=== PATIENT | female | born 1985 | race Hispanic/Latino ===

== ENCOUNTER 2020-03-11 10:08 | Emergency (ER) | payer SELFPAY ==
[2020-03-11] MEDS ORDERED: KETOROLAC 30 MG/1 ML INJ IV ONE (10:42)
--- NOTE | 2020-03-11 10:48 | Emergency Department Report ---
ED Female HPI - General Chief complaint: Vaginal Bleeding Stated complaint: VAGINAL BLEEDING Time Seen by Provider: 03/11/20 10:31 Source: EMS, old records reviewed (None available) Mode of arrival: Stretcher Limitations: No Limitations - History of Present Illness Initial comments: 34-year-old female with a past medical history of endometriosis, irregular menses, menorrhagia, anemia without previous blood transfusion, and ovarian masses suspicious for cancer on previous ED ultrasound sefveryears ago presents to the hospital complaining of heavy vaginal bleeding for the last 10 days. Patient states she is bleeding heavily and passing clots. She is unable to quantify the bleeding and gets frustrated with questioning stating I am asking too many questions. She states that she is feeling lightheaded and dizzy. Patient also has a history of anemia but noncompliant with iron pills. Patient initially told triage nurse that she had ovarian cancer but apparently she had a pelvic ultrasound several years ago performed in the ED and has never followed up with a GI in doctor due to lack of insurance. She also reports she has history of seizure disorder with last seizure several months ago and is noncompliant with meds. This is her first visit here she has been seen at [facility] in the past. Patient complains of abdominal soreness but not severe pain. Patient states her menstrual cycles are chronically irregular and heavy and sometimes occur twice in 1 month. - Related Data Previous Rx's Medication Instructions Recorded Last Taken Type Docusate Sodium [Colace] 100 mg PO BID PRN #20 capsule 03/11/20 Unknown Rx Ferrous Sulfate [Ferrous Sulfate 324 mg PO DAILY #20 tablet. 03/11/20 Unknown Rx 324 MG] Ibuprofen [Motrin] 800 mg PO Q8HR PRN #20 tablet 03/11/20 Unknown Rx medroxyPROGESTERone ACETATE 10 mg PO QDAY #10 tablet 03/11/20 Unknown Rx [Provera] Allergies Allergy/AdvReac Type Severity Reaction Status Date / Time cyclobenzaprine Allergy Unknown Verified 03/11/20 10:33 [From Flexeril] ED Review of Systems ROS: Stated complaint: VAGINAL BLEEDING Other details as noted in HPI Comment: All other systems reviewed and negative ED Past Medical Hx - Past Medical History Hx Seizures: Yes Additional medical history: Endometriosis, ovarian masses "suspicious for c ancer" on ultrasound several years ago no follow-up - Social History Smoking Status: Unknown if ever smoked - Medications Home Medications: Home Medications Medication Instructions Recorded Confirmed Last Taken Type Docusate Sodium [Colace] 100 mg PO BID PRN #20 capsule 03/11/20 Unknown Rx Ferrous Sulfate [Ferrous Sulfate 324 mg PO DAILY #20 tablet. 03/11/20 Unknown Rx 324 MG] Ibuprofen [Motrin] 800 mg PO Q8HR PRN #20 tablet 03/11/20 Unknown Rx medroxyPROGESTERone ACETATE 10 mg PO QDAY #10 tablet 03/11/20 Unknown Rx [Provera] ED Physical Exam - General Limitations: No Limitations - Other Other exam information: General: No acute distress Head: Atraumatic Eyes: normal appearance ENT: Moist mucous membranes Neck: Normal appearance, no midline tenderness Chest: Clear to auscultation bilaterally CV: Regular rate and rhythm Abdomen: Soft, normal bowel sounds, nontender, nondistended, no rebound or guarding Back: Normal inspection Extremity: Normal inspection, full range of motion Neuro: Alert O x 3, no facial asymmetry, speech clear, no gross motor sensory deficit Psych: Appropriate behavior Skin: No rash ED Course Vital Signs 03/11/20 03/11/20 10:30 10:40 Temperature 97.1 F L 98.2 F Pulse Rate 81 80 Respiratory 20 20 Rate Blood Pressure 144/90 Blood Pressure 118/67 [Right] O2 Sat by Pulse 100 100 Oximetry ED Medical Decision Making - Lab Data Result diagrams: 03/11/20 10:51 03/11/20 10:51 Lab Results 03/11/20 03/11/20 03/11/20 Range/Units 10:51 10:51 10:51 WBC 5.0 (4.5-11.0) K/mm3 RBC 3.57 L (3.65-5.03) M/mm3 Hgb 12.1 (10.1-14.3) gm/dl Hct 36.1 (30.3-42.9) % MCV 101 H (79-97) fl MCH 34 H (28-32) pg MCHC 33 (30-34) % RDW 16.9 H (13.2-15.2) % Plt Count 166 (140-440) K/mm3 Lymph % (Auto) 23.8 (13.4-35.0) % Armstrong % (Auto) 12.3 H (0.0-7.3) % Eos % (Auto) 0.2 (0.0-4.3) % Baso % (Auto) 0.5 (0.0-1.8) % Lymph # (Auto) 1.2 (1.2-5.4) K/mm3 Armstrong # (Auto) 0.6 (0.0-0.8) K/mm3 Eos # (Auto) 0.0 (0.0-0.4) K/mm3 Baso # (Auto) 0.0 (0.0-0.1) K/mm3 Seg Neutrophils % 63.2 (40.0-70.0) % Seg Neutrophils # 3.2 (1.8-7.7) K/mm3 PT 13.4 (12.2-14.9) Sec. INR 1.01 (0.87-1.13) APTT 27.8 (24.2-36.6) Sec. Sodium 143 (137-145) mmol/L Potassium 4.1 (3.6-5.0) mmol/L Chloride 106.5 (98-107) mmol/L Carbon Dioxide 25 (22-30) mmol/L Anion Gap 16 mmol/L BUN 3 L (7-17) mg/dL Creatinine 0.4 L (0.6-1.2) mg/dL Estimated GFR > 60 ml/min BUN/Creatinine Ratio 8 % Glucose 85 (65-100) mg/dL Calcium 8.7 (8.4-10.2) mg/dL HCG, Qual (Negative) Blood Type Antibody Screen 03/11/20 03/11/20 Range/Units 10:51 10:57 WBC (4.5-11.0) K/mm3 RBC (3.65-5.03) M/mm3 Hgb (10.1-14.3) gm/dl Hct (30.3-42.9) % MCV (79-97) fl MCH (28-32) pg MCHC (30-34) % RDW (13.2-15.2) % Plt Count (140-440) K/mm3 Lymph % (Auto) (13.4-35.0) % Armstrong % (Auto) (0.0-7.3) % Eos % (Auto) (0.0-4.3) % Baso % (Auto) (0.0-1.8) % Lymph # (Auto) (1.2-5.4) K/mm3 Armstrong # (Auto) (0.0-0.8) K/mm3 Eos # (Auto) (0.0-0.4) K/mm3 Baso # (Auto) (0.0-0.1) K/mm3 Seg Neutrophils % (40.0-70.0) % Seg Neutrophils # (1.8-7.7) K/mm3 PT (12.2-14.9) Sec. INR (0.87-1.13) APTT (24.2-36.6) Sec. Sodium (137-145) mmol/L Potassium (3.6-5.0) mmol/L Chloride (98-107) mmol/L Carbon Dioxide (22-30) mmol/L Anion Gap mmol/L BUN (7-17) mg/dL Creatinine (0.6-1.2) mg/dL Estimated GFR ml/min BUN/Creatinine Ratio % Glucose (65-100) mg/dL Calcium (8.4-10.2) mg/dL HCG, Qual Negative (Negative) Blood Type A POSITIVE Antibody Screen Negative - Radiology Data Radiology results: report reviewed ULTRASOUND PELVIS INDICATION: Heavy vaginal bleeding. TECHNIQUE: Transabdominal and Transvaginal. Duplex Color Doppler used: Yes. COMPARISON: None available FINDINGS: Uterus: Present. Size: 11.8 x 4.4 x 6.3 cm. Endometrial complex: Heterogeneous with indistinct margins, measuring 1.1 cm. Mass lesions: None. Additional findings: None. Right Ovary: Size: 3.4 x 1.5 x 3.5 cm Blood flow: Normal. Cyst or mass: None. Left Ovary: Size: 3.4 x 1.5 x 3.1 cm Blood flow: Normal. Cyst or mass: None. Urinary Bladder: Normal. Free Fluid: None. Additional Findings: None. IMPRESSION: 1. Nonspecific heterogeneity along the endometrial complex. No other significant sonographic abnormality of the pelvis. - Medical Decision Making 34-year-old female with a past medical history of chronically irregular and heav y menstrual cycles and with reported endometriosis presents to the hospital with complaints of heavy vaginal bleeding x10 days and lightheadedness. Vital signs unremarkable and patient does not have hypotension or tachycardia. Labs also unremarkable without any signs of anemia, leukocytosis, thrombocytopenia, or electrolyte/kidney abnormality. hCG is negative for . Patient had a transvaginal/transabdominal ultrasound with Doppler without any abnormality with exception of nonspecific heterogenicity along the endometrial complex. At this time patient is stable and does not require blood transfusion or admission. She received a dose of Toradol IV in the ED she will be placed on Provera, Motrin, and advised to follow-up with a outpatient [employer]ES HELPER for management of her chronic menometrorrhagia and advised to be compliant with iron pills as tolerated. Critical Care Time: No Critical care attestation.: If time is entered above; I have spent that time in minutes in the direct care of this critically ill patient, excluding procedure time. ED Disposition Clinical Impression: Menometrorrhagia Disposition: TO HOME OR SELFCARE Is pt being admited?: No Does the pt Need Aspirin: No Condition: Stable Instructions: Metrorrhagia, Menorrhagia Additional Instructions: Take the medication as prescribed. Follow-up with your doctor or doctor/clinic provided. Return if symptoms worsen as indicated by your discharge instructions. Prescriptions: Docusate Sodium [Colace] 100 mg PO BID PRN #20 capsule PRN Reason: Constipation Ferrous Sulfate [Ferrous Sulfate 324 MG] 324 mg PO DAILY #20 tablet. Ibuprofen [Motrin] 800 mg PO Q8HR PRN #20 tablet PRN Reason: Pain , Severe (7-10) medroxyPROGESTERone ACETATE [Provera] 10 mg PO QDAY #10 tablet Referrals: APARNA ALBA MD [Staff Physician] - 3-5 Days [facility] [Provider Group] - 3-5 Days (call and request appo intment for the [facility] senior safety support manager doctor) Time of Disposition: 12:53
[2020-03-11 11:17] LABS: Basophils % (Auto) 0.5 % (0.0-1.8); Eosinophils % (Auto) 0.2 % (0.0-4.3); Hematocrit 36.1 % (30.3-42.9); Hemoglobin 12.1 gm/dl (10.1-14.3); Lymphocytes # (Auto) 1.2 K/mm3 (1.2-5.4); Lymphocytes % (Auto) 23.8 % (13.4-35.0); Mean Corpuscular HGB Conc 33 % (30-34); Mean Corpuscular Volume 101 fl (79-97); Monocytes # (Auto) 0.6 K/mm3 (0.0-0.8); Monocytes % (Auto) 12.3 % (0.0-7.3); Platelet Count 166 K/mm3 (140-440); Red Blood Count 3.57 M/mm3 (3.65-5.03); Red Cell Distribution Width 16.9 % (13.2-15.2)
[2020-03-11 11:30] LABS: INR 1.01 (0.87-1.13)
[2020-03-11 11:31] LABS: Partial Thromboplastin Time 27.8 Sec. (24.2-36.6)
[2020-03-11 11:41] LABS: Blood Urea Nitrogen 3 mg/dL (7-17); Calcium 8.7 mg/dL (8.4-10.2); Hemolysis Index 4
[2020-03-11 12:07] LABS: BUN/Creatinine Ratio 8
--- NOTE | 2020-03-11 12:39 | Ultrasound Report ---
ULTRASOUND PELVIS INDICATION: Heavy vaginal bleeding. TECHNIQUE: Transabdominal and Transvaginal. Duplex Color Doppler used: Yes. COMPARISON: None available FINDINGS: Uterus: Present. Size: 11.8 x 4.4 x 6.3 cm. Endometrial complex: Heterogeneous with indistinct margins, measuring 1.1 cm. Mass lesions: None. Additional findings: None. Right Ovary: Size: 3.4 x 1.5 x 3.5 cm Blood flow: Normal. Cyst or mass: None. Left Ovary: Size: 3.4 x 1.5 x 3.1 cm Blood flow: Normal. Cyst or mass: None. Urinary Bladder: Normal. Free Fluid: None. Additional Findings: None. IMPRESSION: 1. Nonspecific heterogeneity along the endometrial complex. No other significant sonographic abnormal ity of the pelvis. Signer Name: Joni Duarte MD Signed: 03/11/2020 12:31 PM Workstation Name: [id number]
[2020-03-11 13:28] VITALS: BP 135/67
== END 2020-03-11 13:28 | disposition home or self-care (01) ==
LOC: ED 10:08
DX: N92.1 Excessive and frequent menstruation with irregular cycle (principal); Z79.899 Other long term (current) drug therapy; Z88.8 Allergy status to other drugs, medicaments and biological substances; Z86.69 Personal history of other diseases of the nervous system and sense organs
CPT/HCPCS: 36415; 76830; 76856; 80048; 84703; 85025; 85610; 85730; 86850; 86900; 86901; 96374; 99285; J1885

== ENCOUNTER 2020-06-02 15:35 | Emergency (ER) | payer SELFPAY ==
[2020-06-02 17:01] LABS: Basophils % (Auto) 0.7 % (0.0-1.8); Eosinophils % (Auto) 0.2 % (0.0-4.3); Hematocrit 39.9 % (30.3-42.9); Hemoglobin 13.8 gm/dl (10.1-14.3); Lymphocytes # (Auto) 0.8 K/mm3 (1.2-5.4); Lymphocytes % (Auto) 12.1 % (13.4-35.0); Mean Corpuscular HGB Conc 35 % (30-34); Mean Corpuscular Volume 98 fl (79-97); Monocytes # (Auto) 0.8 K/mm3 (0.0-0.8); Monocytes % (Auto) 11.7 % (0.0-7.3); Platelet Count 159 K/mm3 (140-440); Red Blood Count 4.06 M/mm3 (3.65-5.03); Red Cell Distribution Width 14.5 % (13.2-15.2)
[2020-06-02] MEDS ORDERED: LORazepam 2 MG/ML VIAL IV PRN ×3 (17:16)
[2020-06-02] MEDS ORDERED: ONDANSETRON 4 MG/2 ML INJ IV ONE (17:17)
[2020-06-02 17:20] LABS: Alanine Aminotransferase 85 units/L (7-56); Albumin 4.3 g/dL (3.9-5); Blood Urea Nitrogen 4 mg/dL (7-17); Calcium 9.2 mg/dL (8.4-10.2); Hemolysis Index 10
[2020-06-02 17:21] LABS: BUN/Creatinine Ratio 13
--- NOTE | 2020-06-02 17:22 | Emergency Department Report ---
ED Alcohol HPI - General Chief Complaint: Weakness Stated Complaint: CHEST PAIN/ABD/LIGHTHEAD Time Seen by Provider: 06/02/20 17:10 Source: patient Mode of arrival: Ambulatory Limitations: No Limitations - History of Present Illness Initial Comments: Patient is 34 years old female with chronic alcohol abuse. Patient presented to the ER complaining of generalized weakness for the last few days. Patient stated that she has has been drinking heavily recently however she started having some vomiting and everything she drinks to come out. Patient stated that she was admitted to [facility] few weeks ago for 3 days and she did very well after that. Patient stated that she had seizure today. Patient is very anxious and with significant tremor. Patient is in obvious delirium tremors. CIWA protocol immediately initiated. MD Complaint: alcohol withdrawal Chronic Alcohol Use: Yes Previous Visits for Alcohol Intoxication?: Yes Recent Trauma: No Treatments Prior to Arrival: none - Related Data Previous Rx's Medication Instructions Recorded Last Taken Type Docusate Sodium [Colace] 100 mg PO BID PRN #20 capsule 03/11/20 Unknown Rx Ferrous Sulfate [Ferrous Sulfate 324 mg PO DAILY #20 tablet. 03/11/20 Unknown Rx 324 MG] Ibuprofen [Motrin] 800 mg PO Q8HR PRN #20 tablet 03/11/20 Unknown Rx medroxyPROGESTERone ACETATE 10 mg PO QDAY #10 tablet 03/11/20 Unknown Rx [Provera] Allergies Allergy/AdvReac Type Severity Reaction Status Date / Time cyclobenzaprine Allergy Unknown Verified 03/11/20 10:33 [From Flexeril] ED Review of Systems ROS: Stated complaint: CHEST PAIN/ABD/LIGHTHEAD Other details as noted in HPI Comment: All other systems reviewed and negative Constitutional: denies: chills, fever Respiratory: denies: cough, orthopnea, shortness of breath, SOB with exertion Cardiovascular: palpitations. denies: chest pain Gastrointestinal: nausea. denies: abdominal pain, vomiting, diarrhea, constipation, hematemesis, melena, hematochezia Musculoskeletal: denies: back pain Neurological: denies: headache, weakness, numbness, paresthesias, confusion ED Past Medical Hx - Past Medical History Previous Medical History?: Yes Hx Seizures: Yes Additional medical history: Endometriosis, ovarian masses "suspicious for cancer" on ultrasound several years ago no follow-up, heavy periods - Surgical History Past Surgical History?: Yes Additional Surgical History: - Social History Smoking Status: Never Smoker Substance Use Type: Alcohol - Medications Home Medications: Home Medications Medication Instructions Recorded Confirmed Last Taken Type Docusate Sodium [Colace] 100 mg PO BID PRN #20 capsule 03/11/20 Unknown Rx Ferrous Sulfate [Ferrous Sulfate 324 mg PO DAILY #20 tablet. 03/11/20 Unknown Rx 324 MG] Ibuprofen [Motrin] 800 mg PO Q8HR PRN #20 tablet 03/11/20 Unknown Rx medroxyPROGESTERone ACETATE 10 mg PO QDAY #10 tablet 03/11/20 Unknown Rx [Provera] ED Physical Exam - General Limitations: No Limitations General appearance: alert, anxious - Head Head exam: Present: atraumatic, normocephalic, normal inspection - Eye Eye exam: Present: normal appearance, PERRL - ENT ENT exam: Present: normal exam, normal orophraynx, mucous membranes moist - Neck Neck exam: Present: normal inspection, full ROM. Absent: tenderness, meningismus - Respiratory Respiratory exam: Present: normal lung sounds bilaterally - Cardiovascular Cardiovascular Exam: Present: tachycardia - GI/Abdominal GI/Abdominal exam: Present: soft, normal bowel sounds. Absent: distended, tenderness, guarding, rebound, rigid, organomegaly, mass, bruit, pulsatile mass, hernia - Extremities Exam Extremities exam: Present: normal inspection, full ROM, normal capillary refill. Absent: tenderness - Back Exam Back exam: Present: normal inspection, full ROM. Absent: CVA tenderness (R), CVA tenderness (L) - Neurological Exam Neurological exam: Present: alert, oriented X3, CN II-XII intact - Psychiatric Psychiatric exam: Present: anxious. Absent: depressed, homicidal ideation, suicidal ideation - Skin Skin exam: Present: warm, intact, normal color ED Course Vital Signs 06/02/20 06/02/20 06/02/20 15:55 17:54 17:58 Temperature 99.0 F Pulse Rate 93 H 77 Respiratory 22 13 22 Rate Blood Pressure 141/95 Blood Pressure [Right] O2 Sat by Pulse 97 98 97 Oximetry 06/02/20 06/02/20 06/02/20 18:00 18:03 18:15 Temperature Pulse Rate 77 77 84 Respiratory 14 12 16 Rate Blood Pressure 137/97 111/87 Blood Pressure 137/97 [Right] O2 Sat by Pulse 98 98 96 Oximetry 06/02/20 06/02/20 06/02/20 18:30 18:46 19:00 Temperature Pulse Rate 78 67 73 Respiratory 12 15 14 Rate Blood Pressure 111/87 111/87 111/87 Blood Pressure [Right] O2 Sat by Pulse 96 97 99 Oximetry - Reevaluation(s) Reevaluation #1: 06/02/20 21:35 Patient evaluated by hospitalist Dr. Hernandez and stated that patient does not meet criteria for admission. Patient is currently alert, oriented x3 no acute distress. Patient denied any suicidal or homicidal ideation. No visual or auditory hallucination. Patient given prescription for Librium and Zofran and local resources for alcohol rehab. Patient advised to return to the ER she develop any new symptoms. ED Medical Decision Making - Lab Data Result diagrams: 06/02/20 16:46 06/02/20 16:46 - Medical Decision Making Patient is 34 years old female with chronic alcohol abuse. Patient presented to the ER complaining of generalized weakness for the last few days. Patient stated that she has has been drinking heavily recently however she started having some vomiting and everything she drinks to come out. Patient stated that she was admitted to [facility] few weeks ago for 3 days and she did very well after that. Patient stated that she had seizure today. Patient is very anxious and with significant tremor. Patient is in obvious delirium tremors. CIWA protocol immediately initiated. Labs reviewed and is unremarkable except for slightly elevated liver enzymes consistent with alcohol. Patient CIWA score is 21. Patient received Ativan. I discussed the patient with Dr. Hernandez, he agreed to admit the patient to medical service for further management. Critical Care Time: Yes Critical care time in (mins) excluding proc time.: 30 Critical care attestation.: If time is entered above; I have spent that time in minutes in the direct care of this critically ill patient, excluding procedure time. ED Disposition Clinical Impression: Delirium tremens, Acute nausea with nonbilious vomiting, Seizure Disposition: - TO HOME OR SELFCARE Is pt being admited?: No Condition: Stable Instructions: Nausea and Vomiting, Adult, Alcoholic Hepatitis, Delirium Tremens, [id number] Referrals: PRIMARY CARE,MD [Primary Care Provider] - 3-5 Days
[2020-06-02 17:59] LABS: Amphetamine Screen,Urine PRESUMPTIVE NEGATIVE; Benzodiazepines Screen,Urine PRESUMPTIVE NEGATIVE; Cannabinoid Screen,Urine PRESUMPTIVE NEGATIVE; Cocaine Screen,Urine PRESUMPTIVE NEGATIVE; Methadone Screen,Urine PRESUMPTIVE NEGATIVE; Opiate Screen,Urine PRESUMPTIVE NEGATIVE
[2020-06-02] MEDS ORDERED: THIAMINE 100 MG, FOLIC ACID 1 MG, MULTIPLE VITAMIN INJ, ADULT 10 ML in SODIUM CHLORIDE ... IV ONE (18:00)
[2020-06-02 18:08] LABS: Bacteria,Urine 1+ /HPF (Negative); Bilirubin,Urine NEG (Negative); Blood,Urine NEG (Negative); Color,Urine Amber (Yellow); Mucus,Urine 2+ /HPF; Protein,Urine <15 mg/dL mg/dL (Negative)
[2020-06-02] MEDS ORDERED: SODIUM CHLORIDE 0.9% 1000 ML 1,000 ML ONE (18:25)
[2020-06-02] MEDS: SODIUM CHLORIDE 0.9% 1000 ML 2,000 ML IV ONE ×2 (18:27→19:10)
--- NOTE | 2020-06-02 20:32 | Event Note ---
Date: 06/02/20 34 YO Female with Endometriosis, Menorrhagia, ETOH Dependence presents to ED for evaluation. Patient seen and evaluated in the emergency department. Patient reports "I felt like I was going to have a seizure". Patient found to be alert oriented x3 with good insight. Patient has GCS of 15. No profound global confusion, no disorientation, no auditory/visual hallucinations, no tremors, no abdominal cramping, no diaphoresis. Patient normotensive. No tachycardia present. Patient acknowledges decreased oral intake over the past several days. Patient knowledges nausea. Patient being treated with banana bag and IV fluid resuscitation therapy the time my evaluation. Patient does not meet admission criteria at this time. Recommend reevaluation after fluid resuscitation. - General Limitations: No Limitations General appearance: alert, anxious - Head Head exam: Present: atraumatic, normocephalic, normal inspection - Eye Eye exam: Present: normal appearance, PERRL - ENT ENT exam: Present: normal exam, normal orophraynx, mucous membranes moist - Neck Neck exam: Present: normal inspection, full ROM. Absent: tenderness, meningismus - Respiratory Respiratory exam: Present: normal lung sounds bilaterally - Cardiovascular Cardiovascular Exam: Present: RRR, No MRG - GI/Abdominal GI/Abdominal exam: Present: soft, normal bowel sounds. Absent: distended, tenderness, guarding, rebound, rigid, organomegaly, mass, bruit, pulsatile mass, hernia - Extremities Exam Extremities exam: Present: normal inspection, full ROM, normal capillary refill. Absent: tenderness - Back Exam Back exam: Present: normal inspection, full ROM. Absent: CVA tenderness (R), CVA tenderness (L) - Neurological Exam Neurological exam: Present: alert, oriented X3, CN II-XII intact - Psychiatric Psychiatric exam: Mood/Affect:WNL. Absent: depressed, homicidal ideation, suicidal ideation - Skin Skin exam: Present: warm, intact, normal color
[2020-06-02 22:08] VITALS: BP 119/74
== END 2020-06-02 22:07 | disposition home or self-care (01) ==
LOC: ED 15:35
DX: F10.231 Alcohol dependence with withdrawal delirium (principal); G40.909 Epilepsy, unspecified, not intractable, without status epilepticus; R11.2 Nausea with vomiting, unspecified; G43.909 Migraine, unspecified, not intractable, without status migrainosus; Z79.899 Other long term (current) drug therapy; Z88.8 Allergy status to other drugs, medicaments and biological substances; Z98.890 Other specified postprocedural states
CPT/HCPCS: 36415; 80053; 80307; 81001; 83690; 84703; 85025; 96365; 96366; 96375; 99283; J2060; J2405; J3411; J7030; 80320; G0480